=== PATIENT | male | born 1970 | race Caucasian/White ===

== ENCOUNTER → 2021-05-25 | Outpatient (CLI) | payer MEDICAID ==
[2021-05-25 12:08] LABS: BASOPHIL % 0.8 % (0.0-0.2); EOSINOPHIL # 0.1 10^3/uL (0.0-0.2); EOSINOPHIL % 2.3 % (0.0-5.0); LYMPHOCYTES # 1.18 10^3/uL1 (1.0-4.8); LYMPHOCYTES % 24.2 % (24.0-44.0); MEAN CORP HGB 31.7 pg (26-34); MONOCYTES # 0.7 10^3/uL (0.3-0.8); MONOCYTES % 14.2 % (5.0-12.0); NEUTROPHIL # 2.9 10^3/uL (1.8-7.7); NEUTROPHILS % 58.5 % (41.0-85.0); PLATELET COUNT 179 10^3/uL (150-400); RED CELL DISTRIBUTION WIDTH 12.5 % (11.5-14.5)
[2021-05-25 12:40] LABS: CARBON DIOXIDE 30.4 mmol/L (20.0-32)
== END | disposition home or self-care (01) ==
LOC: NPLAB 11:47
PROVIDERS: ATTEND Internal Medicine
DX: B34.2 Coronavirus infection, unspecified (principal)
CPT/HCPCS: 36415; 80048; 85025